=== PATIENT | male | born 1940 | race Caucasian/White ===

== ENCOUNTER 2020-02-22 13:19 | Observation (INO) | payer MEDICARE ==
[~2020-02-22] VITALS: Ht 172.7 cm; Wt 111.7 kg
--- NOTE | 2020-02-22 13:21 | NUR ---
CHEST PAIN WITH SOB. EMS ON ARRIVAL STATES RATE OF 160. HISTORY CABG. 100 FENTANYL AND 4 OF ZOFRAN IN ROUTE. PATIENT STATES CHEST PAIN BEGAN TODAY BUT POOR HISTORIAN REGARDING EXACTLY WHAT TIME.
[2020-02-22] MEDS ORDERED: SODIUM CHLORIDE 0.9% 1,000 ML IV ONE (13:28)
[2020-02-22] MEDS ORDERED: SODIUM CHLORIDE FLUSH 10ML SYR IVF ONE (13:30)
[2020-02-22] MEDS ORDERED: TAMS-11 PO (13:42)
[2020-02-22] MEDS ORDERED: DOXA2TAB9 PO (13:42)
[2020-02-22] MEDS ORDERED: WARF3TAB52 PO (13:42)
[2020-02-22] MEDS ORDERED: METO25TA91 PO (13:42)
[2020-02-22] MEDS ORDERED: SIMV40TA20 PO (13:42)
[2020-02-22] MEDS ORDERED: SODI325T PO (13:42)
[2020-02-22] MEDS ORDERED: LISI-167 PO (13:42)
[2020-02-22] MEDS ORDERED: ALLO300T PO (13:42)
[2020-02-22] MEDS ORDERED: EZET10TA70 PO (13:42)
[2020-02-22] MEDS ORDERED: HYDR-3341 PO (13:42)
[2020-02-22] MEDS ORDERED: CARI350T PO (13:44)
[2020-02-22] MEDS ORDERED: ALPR0.5T7 PO (13:44)
[2020-02-22] MEDS ORDERED: PLEASE ENTER ALLERGIES MC SCH (14:00)
--- NOTE | 2020-02-22 14:00 | NUR ---
AT BEDSIDE. PATIENT DENIES PAIN NOW.
[2020-02-22 14:02] LABS: BASOPHILS # (AUTO) 0.01 x10^3/uL (0-0.1); BASOPHILS % (AUTO) 0 % (0-1); EOSINOPHILS # (AUTO) 0.01 x10^3/uL (0-0.4); EOSINOPHILS % (AUTO) 0 % (1-7); LYMPHOCYTES # (AUTO) 0.68 x10^3/uL (1-3.4); LYMPHOCYTES % (AUTO) 7 % (22-44); MD NO; MEAN CORPUSCULAR HEMOGLOBIN 29.7 pg (27.5-34.5); MEAN CORPUSCULAR HGB CONC 32.2 g/dL (33.2-36.2); MEAN PLATELET VOLUME 8.9 fL (7.4-10.4); MONOCYTES % (AUTO) 4 % (2-9); NEUTROPHILS # (AUTO) 8.21 x10^3/uL (1.8-6.8); NEUTROPHILS % (AUTO) 88 % (42-75); PLATELET COUNT 241 x10^3/uL (130-400); RED BLOOD COUNT 4.92 x10^6/uL (4.38-5.82); RED CELL DISTRIBUTION WIDTH 15.1 % (9.4-14.8)
[2020-02-22 14:06] LABS: ALANINE AMINOTRANSFERASE 31 U/L (12-78); ALBUMIN 3.3 g/dL (3.4-5.0); ANION GAP 11 mmol/L (5-15); CALCIUM 8.7 mg/dL (8.5-10.1); CHLORIDE 108 mmol/L (98-107); CREATININE 2.36 mg/dL (0.7-1.3)
[2020-02-22 14:07] LABS: INTERNATIONAL NORMALIZED RATIO 2.24 (0.93-1.1); PROTHROMBIN TIME 23.3 Seconds (9.6-11.5)
[2020-02-22 14:11] LABS: ALKALINE PHOSPHATASE 91 U/L (45-117); BILIRUBIN,TOTAL 0.8 mg/dL (0.2-1.0); TOTAL PROTEIN 7.2 g/dL (6.4-8.2); TROPONIN I < 0.015 ng/mL (0.000-0.045)
--- NOTE | 2020-02-22 15:19 | NUR ---
BREAK RN: PT STANDING AT SIDE OF [facility], URINATING. PT REMOVED CLOTHING, PLACED IN HOSPITAL GOWN. REATTACHED TO MONITORS. SR PER MONITOR. PT AND PTS AWARE OF WAITING FOR TEST RESULTS AND ADMIT. IV INFUSING WITHOUT REDNESS AND SWELLING.
--- NOTE | 2020-02-22 15:44 | NUR ---
REPORT TO ISABEL KUO
[2020-02-22] MEDS ORDERED: SODIUM CHLORIDE FLUSH 10ML SYR IVF PRN (16:30)
[2020-02-22] MEDS ORDERED: ENALAPRILAT 1.25 MG/ML, 2ML IVPush PRN (17:00)
[2020-02-22] MEDS ORDERED: hydrALAzine 20 MG/ML, 1ML IVPush PRN (17:00)
[2020-02-22] MEDS ORDERED: ONDANSETRON ODT 4 MG PO PRN (17:00)
[2020-02-22] MEDS ORDERED: ACETAMINOPHEN 325 MG TABLET PO PRN (17:00)
[2020-02-22] MEDS ORDERED: LABETALOL 5MG/ML, 20ML IVPush PRN (17:00)
[2020-02-22] MEDS ORDERED: morphine SULFATE 10 MG/ML, 1ML IVPush PRN (17:00)
[2020-02-22] MEDS ORDERED: ONDANSETRON 2MG/ML, 2ML IVPush PRN (17:00)
--- NOTE | 2020-02-22 17:11 | NUR ---
patient report called to Yessenia. Patient is in bed and denies pain. he has at bedside. on monitor.
--- NOTE | 2020-02-22 17:19 | NUR ---
report called to SHIELA Casas. patient rtg.
--- NOTE | 2020-02-22 17:36 | NUR ---
HELPED PATIENT TO BEDSIDE COMMODE. 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
[2020-02-22 18:00] VITALS: BP 149/79
[2020-02-22] MEDS: WARFARIN 3 MG TABLET PO-COUM SCH (18:10)
[2020-02-22] MEDS ORDERED: SIMVASTATIN 40 MG TABLET PO SCH (21:00)
[2020-02-22 21:01] VITALS: BP 146/76
[2020-02-22] MEDS: LISINOPRIL 10 MG TABLET PO SCH (21:02)
[2020-02-23 01:02] VITALS: BP 121/74
[2020-02-23 05:13] LABS: ANION GAP 6 mmol/L (5-15); CHLORIDE 113 mmol/L (98-107); CREATININE 1.88 mg/dL (0.7-1.3)
[2020-02-23 07:40] VITALS: BP 150/77
[2020-02-23 07:55] LABS: TROPONIN I 0.056 ng/mL (0.000-0.045)
[2020-02-23] MEDS: LISINOPRIL 10 MG TABLET PO SCH (08:15)
[2020-02-23] MEDS ORDERED: REGADENOSON 0.4 MG/5 ML SYRINGE ONE (08:30)
[2020-02-23] MEDS ORDERED: DOXAZOSIN 2MG TABLET PO SCH (09:00)
[2020-02-23] MEDS ORDERED: ALLOPURINOL 300 MG TABLET PO SCH (09:00)
[2020-02-23] MEDS ORDERED: METOPROLOL SUCCINATE 25 MG TAB.ER.24H PO SCH (09:00)
[2020-02-23] MEDS ORDERED: SODIUM BICARBONATE 650 MG TABLET PO SCH (09:00)
[2020-02-23] MEDS ORDERED: CARISOPRODOL 350 MG TABLET PO SCH (09:00)
[2020-02-23] MEDS ORDERED: EZETIMIBE 10 MG TABLET PO SCH (09:00)
[2020-02-23] MEDS ORDERED: TAMSULOSIN 0.4 MG CAP.ER.24H PO SCH (09:00)
[2020-02-23 14:15] VITALS: BP 156/63
[2020-02-23] MEDS: WARFARIN 3 MG TABLET PO-COUM SCH (16:28)
== END 2020-02-23 17:00 | disposition home or self-care (01) ==
LOC: ED 14:12 → INTOOBSV 17:06 → EDIP 17:06 → 5SO 17:43 → DCLOUNGE 02-23 16:41
PROVIDERS: ADMIT Family Medicine; ATTEND Family Medicine
DX: I24.9 Acute ischemic heart disease, unspecified (principal); I12.9 Hypertensive chronic kidney disease with stage 1 through stage 4 chronic kidney disease, or unspecified chronic kidney disease; E11.22 Type 2 diabetes mellitus with diabetic chronic kidney disease; N18.9 Chronic kidney disease, unspecified; R01.1 Cardiac murmur, unspecified; I25.10 Atherosclerotic heart disease of native coronary artery without angina pectoris; E78.5 Hyperlipidemia, unspecified; N40.0 Benign prostatic hyperplasia without lower urinary tract symptoms; I25.2 Old myocardial infarction; F41.9 Anxiety disorder, unspecified; M10.9 Gout, unspecified; Z79.899 Other long term (current) drug therapy; Z95.1 Presence of aortocoronary bypass graft; Z79.01 Long term (current) use of anticoagulants; Z86.79 Personal history of other diseases of the circulatory system
CPT/HCPCS: 36415; 71045; 78452; 80048; 80053; 83735; 83880; 84484; 85025; 85610; 85730; 93005; 93017; 93306; 96360; 96361; 99285; A9502; G0378; J2785; J7030